=== PATIENT | male | born 1980 | race Hispanic/Latino ===

== ENCOUNTER 2018-10-22 10:11 | Emergency (ER) | payer OTHER ==
[~2018-10-22] VITALS: Ht 170.2 cm; Wt 83.5 kg
== END 2018-10-22 14:20 | disposition home or self-care (01) ==
LOC: ED 10:11
DX: K80.20 Calculus of gallbladder without cholecystitis without obstruction (principal)
CPT/HCPCS: 76705; 96374; 96375; 99284-25; J2270; J2405; J7030

== ENCOUNTER 2019-06-02 13:05 | Day surgery (SDC) | payer OTHER ==
[~2019-06-02] VITALS: Ht 170.2 cm; Wt 84.8 kg
[~2019-06-02 13:05] MED LIST: HYDROCODON-ACE1 EA10 PO; IBUPROFEN600 MG PO; TYLENOL325 MG PO; ZYRTEC10 M3 PO
[2019-06-02] MEDS ORDERED: OMEPRAZOLE20 MG PO (13:26)
--- NOTE | 2019-06-02 16:57 | NUR ---
06/02/19 1659 Lucita Berrios 1659 PATIENT ARRIVES TO PACU AWAKE, BUT DROWSY. RESP EVEN AND UNLABORED. ROOM AIR SATS >95%. PATIENT DENIES PAIN OR NAUSEA.
--- NOTE | 2019-06-03 11:39 | OR ---
[facility] [address], [place] [address] Signed DATE OF OPERATION: 06/02/2019 SURGEON: Marissa Maldonado MD PREOPERATIVE DIAGNOSIS: Epigastric pain. POSTOPERATIVE DIAGNOSIS: Distal esophagitis with healing esophageal ulcer. PROCEDURE PERFORMED: Esophagogastroduodenoscopy with biopsy. ANESTHESIA: Intravenous sedation, fentanyl 100 mcg, Versed 4 mg. INDICATION: This is a 38-year-old man is a prisoner at [facility] [employer] and underwent laparoscopic cholecystectomy with cholangiogram by me on February 03, 2019. He had multiple gallstones and his biliary symptoms have resolved. He does have epigastric pain, which is suggestive of peptic disease or possibly esophageal disease. He has been treated empirically with omeprazole which has been somewhat beneficial. He has been on ibuprofen previously. He is admitted to undergo upper endoscopy to better characterize the problem. He understands the risks of bleeding, infection, and perforation. FINDINGS: Distal esophagitis without sign of Becerra's epithelium. There appeared to be an area that was a healing ulcer. Photographs and biopsies were taken. The stomach and duodenum were otherwise normal. The flap valve was good overall. DESCRIPTION OF PROCEDURE: The patient was brought to the endoscopy suite, given topical Hurricaine spray hypopharyngeal anesthesia and placed in lateral decubitus position. He was given intravenous sedation to the point of slurred speech and nystagmus. A bite block was placed. An Olympus video upper endoscope was passed in the hypopharynx, vocal cords were normal. Scope was advanced to the esophagus and throughout its length it was normal except in the distal portion where there was chronic inflammatory change. No sign of Becerra's epithelium, stricture, neoplasm or varices. The scope was advanced to the stomach. Rugal folds were normal. The pylorus was normal. Scope was passed through it into the duodenum, which was also normal. Ampulla appeared normal. Biopsies Electronically Signed By: MARISSA MALDONADO MD 06/03/19 1139 PATIENT NAME: BRYANT RAMOS OPERATIVE REPORT DATE OF : 84 REPORT #: [id number] PHYSICIAN: MARISSA MALDONADO MD PCP: STANLEY BAEZ REPORT IS CONFIDENTIAL AND NOT TO BE RELEASED WITHOUT AUTHORIZATION [facility] [address], [place] [address] Signed were taken of the duodenal mucosa to assess for celiac disease. The scope was withdrawn. A biopsy was then taken of the antrum for both LEOPOLDO and pathologic testing. Retroflexed view showed a good flap valve overall. There was no sign of hiatal hernia particularly. The scope was then withdrawn to the distal esophagus confirming chronic inflammatory change. Biopsies were taken of the distal esophagus. An area appeared to have healing from an ulceration. This was biopsied as well. The scope was carefully withdrawn and remaining esophagus was normal. Scope was removed and the patient was taken to recovery room in good condition. CONCLUDING DIAGNOSIS: Distal esophagitis with healing distal esophageal ulcer. PLAN: Recommend continued use of Prilosec. We will see back in the long term clinic on my next visit. MD ALTAGRACIA Pozo/NOL /[id number] cc: AALIYAH La Copies: STANLEY BAEZ ~ Electronically Signed By: MARISSA MALDONADO MD 06/03/19 1139 PATIENT NAME: RACHELRAMÍREZOLIMPIA RAMSAY OPERATIVE REPORT DATE OF : 84 REPORT #: [id number] PHYSICIAN: MARISSA MALDONADO MD PCP: STANLEY BAEZ REPORT IS CONFIDENTIAL AND NOT TO BE RELEASED WITHOUT AUTHORIZATION
--- NOTE | 2019-06-04 15:16 | PATH ---
[facility] [address], [place] [address] Signed SPECIMEN(S): A DUODENUM NOS SPECIMEN(S): B ANTRUM SPECIMEN(S): C LOWER ESOPHAGUS SPECIMEN(S): D ESOPHAGUS NOS SPECIMEN SOURCE: A. DUODENUM NOS B. ANTRUM C. LOWER ESOPHAGUS D. ESOPHAGUS NOS CLINICAL HISTORY: Pre: Epigastric pain. Post: Distal esophagitis. Possible esophageal ulcer. MICROSCOPIC DESCRIPTION: A. Histologic sections of all submitted blocks are examined by light microscopy. These findings, together with the gross examination, support the pathologic diagnosis. B. Sections reveal a biopsy of gastric mucosa. The epithelial surface is intact and has retained mucus secreting ability. The lamina propria is minimally expanded by a population of plasma cells, lymphocytes and infrequent eosinophils. No acute inflammatory cells, goblet cells, Paneth cells or bacteria morphologically consistent with Helicobacter are seen on HE stained sections. There is no evidence of malignancy or atypia. C. Sections reveal biopsies of esophageal mucosa composed of both squamous (predominantly) and glandular mucosa. The squamous mucosa has a prominent basal cell layer and elongated rete ridges. An infrequent intraepithelial lymphocyte is seen. Intraepithelial eosinophils are not a feature. The glandular mucosa present is limited to one small area in the submucosa. No goblet cells are seen. A few lymphocytes and plasma cells are seen. No acute inflammatory cells or goblet cells are identified. There is no evidence of malignancy or atypia. D. Sections reveal biopsies of esophageal mucosa composed of both squamous and glandular mucosa. The squamous mucosa present has a prominent basal cell layer and elongated rete ridges. A few intraepithelial lymphocytes are seen. Intraepithelial eosinophils are not a feature. The glandular mucosa present shows a small superficial erosion. Histologically it appears to be of proximal gastric origin. The lamina propria is mildly expanded by a population of plasma cells, lymphocytes, eosinophils and small numbers of acute inflammatory PATIENT NAME: BRYANT RAMOS PATHOLOGY DATE OF : 84 REPORT #: [id number] PHYSICIAN: KORI PATHOLOGY PCP: STANLEY BAEZ REPORT IS CONFIDENTIAL AND NOT TO BE RELEASED WITHOUT AUTHORIZATION [facility] [address], [place] [address] Signed cells, which extend into the mucosa proper. No goblet cells or Paneth cells are identified. There is no evidence of malignancy or atypia. LJA:cml FINAL PATHOLOGIC DIAGNOSIS: A. Mucosa, duodenum, not otherwise specified, biopsy: - Duodenal mucosa with normal villiform architecture, no microscopic pathologic diagnosis. B. Mucosa, antrum, biopsy: - Minimal inactive chronic gastritis. - Negative for the presence of bacteria morphologically consistent with Helicobacter on HE stained sections. C. Mucosa, lower esophagus, biopsy: - Histologic features consistent with reflux without significant inflammation. D. Mucosa, esophagus, not otherwise specified, biopsy: - Mild acute esophagitis with features consistent with reflux and small surface erosion. LJA:cml:C2NR GROSS DESCRIPTION: A. The specimen is received in a formalin filled specimen container labeled "LG, #1". Three billings biopsies are 0.2, 0.2 and 0.3 cm and entirely submitted in cassette A1. B. The specimen is received in a formalin filled specimen container labeled "LG, #2". A single billings biopsy is 0.5 cm and entirely submitted in cassette B1. C. The specimen is received in a formalin filled specimen container labeled "LG, #3". Four sumanth biopsies are 0.2-0.5 cm and entirely submitted in cassette C1. D. The specimen is received in a formalin filled specimen container labeled "LG, #4". Three fitzgerald biopsies are each 0.2 cm and entirely submitted in cassette D1. GW (under the direct supervision of a pathologist) The Gross Description was prepared using a voice recognition system. The report was reviewed for accuracy; however, sound-alike word errors, addition and/or deletions may occur. If there is any question about this report, please contact Client Services. PERFORMING LABORATORY: The technical component was performed by [facility], [address] [place] [id number] (Aging Room Hand: Dilma Mustafa MD; CLIA# [id number]). PATIENT NAME: BRYANT RAMOS PATHOLOGY DATE OF : 84 REPORT #: [id number] PHYSICIAN: KORI MCMANUS PCP: STANLEY BAEZ REPORT IS CONFIDENTIAL AND NOT TO BE RELEASED WITHOUT AUTHORIZATION [facility] [address], [place] [address] Signed [facility] [address] [address] (Aging Room Hand: Anand Coe MD; CLIA# [id number]). Diagnostician: Anand Coe MD Pathologist Electronically Signed 06/04/2019 Copies: ~ PATIENT NAME: BRYANT RAMOS PATHOLOGY DATE OF : 84 REPORT #: [id number] PHYSICIAN: KORI MCMANUS PCP: STANLEY BAEZ REPORT IS CONFIDENTIAL AND NOT TO BE RELEASED WITHOUT AUTHORIZATION
== END 2019-06-02 17:20 | disposition home or self-care (01) ==
LOC: DS 13:05 → OPS 13:05 → DS 13:09 → OPS 14:00
PROVIDERS: Surgery
PROC: 0DB78ZX Excision of Stomach, Pylorus, Via Natural or Artificial Opening Endoscopic, Diagnostic (ICD-10-PCS; 2019-06-02)
PROC: 0DB38ZX Excision of Lower Esophagus, Via Natural or Artificial Opening Endoscopic, Diagnostic (ICD-10-PCS; 2019-06-02)
PROC: 0DB58ZX Excision of Esophagus, Via Natural or Artificial Opening Endoscopic, Diagnostic (ICD-10-PCS; 2019-06-02)
PROC: 0DB98ZX Excision of Duodenum, Via Natural or Artificial Opening Endoscopic, Diagnostic (ICD-10-PCS; principal; 2019-06-02 14:00)
DX: K29.50 Unspecified chronic gastritis without bleeding (principal); K22.10 Ulcer of esophagus without bleeding; K80.10 Calculus of gallbladder with chronic cholecystitis without obstruction
CPT/HCPCS: G0500; J2250; J3010; J7121